=== PATIENT | male | born 1950 | race Caucasian/White ===

== ENCOUNTER 2023-11-07 06:04 | Emergency (ER) | payer OTHER, SELFPAY ==
[2023-11-07] VITALS (7 sets, daily range): BP systolic 129–184; BP diastolic 56–102; BMI 31.0
--- NOTE | 2023-11-07 06:32 | EDRN ---
0400. Pt is on a blood thinner and he can not get it tostop. Pt feels blood going down his throat.
--- NOTE | 2023-11-07 07:10 | ED.GENMED ---
History of Present Illness
General
Chief Complaint: Nose Bleed
Source: patient and spouse
Exam Limitations: none
Time Seen by Provider: 11/07/23 06:52
Nursing documentation reviewed up to this point in time: agreed with
History of Present Illness
History of Present Illness:
73 yo male presents to the emergency department due to a nose bleed that started at 4 am. He takes xarelto for atrial fibrillation. It is bleeding from the left nostril.
Past History
Past History
ED Past Medical History: Arrthythmia (atrial fibrillation)
ED Past Surgical History: Orthopedic (back surgery) and Other (hernia repair)
Social History
Tobacco: Non-smoker
Alcohol: None
Drug: None
Phy Exam
Physical Exam
Physical Exam:
No acute distress, blood draining from left nare, possible source and anterior, but not seen
Course
Orders/Labs/Results
Orders:
Orders
11/07/23 08:55
Acetaminophen [Tylenol] 650 mg PO NOW STA
Amoxicillin [Amoxil] 500 mg PO STAT STA
11/07/23 08:57
Acetaminophen [Tylenol] 650 mg .ROUTE .STK-MED ONE
11/07/23 08:59
Amoxicillin [Amoxil] 500 mg PO STAT STA
Vital Signs
Initial and Last Documented VS:
Initial Vital Signs
Temp Pulse Resp BP Pulse Ox
98 F 70 24 184/102 98
11/07/23 06:07 11/07/23 06:07 11/07/23 06:07 11/07/23 06:07 11/07/23 06:07
Last Documented Vital Signs
Temp Pulse Resp BP Pulse Ox
98 F 66 17 159/79 97
11/07/23 06:07 11/07/23 09:49 11/07/23 09:49 11/07/23 09:49 11/07/23 08:47
Procedures
Nosebleed
Drug treatment: Lidocaine and Epinephrine
Treatment: Silver nitrate cautery and Posterior balloon
Post treatment bleeding: none- good control
MDM/Problems Addressed
Differential Diagnosis Includes:
Posterior epistaxis versus anterior
MDM/Problems Addressed:
Epistaxis is a 73-year-old male on Xarelto, bleeding controlled with posterior packing. Seen by Dr. Velasquez, ENT. Examined patient but bleeding was controlled. He will follow-up with patient in office.
Chronic conditions affecting care: Arrhythmia
Acute Exacerbation and/or Progression of Chronic Illness: Arrhythmia
*Pulse Oximetry
Patient hypoxic: no
*Ward Service Supervisor Interpretation
Rate: normal
Interpretation: normal
Heart Rate: 66
Rhythm: sinus
*Critical Care Note
Total Time (30-74mins, 75-104mins- exclusive of procedures): Not Applicable
Patient Management
Discussion with other providers: Cylinder Inspector And Tester (ENT, Dr. Velasquez)
Escalation/DeEscalation of care consider admission/obs:
Admit not indicated
ED Attending Note
-
Portions of this chart may have been created with voice recognition software.� Occasional wrong word or��sound alike� substitutions may have occurred due to the inherent limitations of voice recognition software.
Discharge Plan
Departure
Patient Disposition: Home (Routine Discharge)
Date of Disposition: 11/07/23
Time of Disposition: 09:48
Patient with high blood pressure during this ER visit?: Yes
Condition: Good
Discharge Problem:
Acute posterior epistaxis
Instructions: Nosebleeds (DC), BLOOD PRESSURE
Prescriptions:
New
amoxicillin 500 mg capsule
500 mg PO BID Qty: 10 0RF
No Action
metoprolol succinate 100 mg Tablet Extended Release 24 Hr
100 mg PO DAILY
lisinopril 10 mg Tablet
10 mg PO DAILY
aspirin 81 mg Tablet
81 mg PO DAILY
digoxin 125 mcg (0.125 mg) Tablet
125 mcg PO DAILY
doxycycline hyclate 20 mg Tablet
20 mg PO DAILY
Xarelto 20 mg Tablet
20 mg PO HS
Referrals:
Samina Lopez MD [Family Provider] -
Juvenal Velasquez MD [Active] - Call in 1-3 days for appt
Interventions
Interventions:
*Risk Screen - Suicide Last Done: 11/07/23 06:07
*General Assessment Last Done: 11/07/23 06:25
*Neglect/Abuse Screening Last Done: 11/07/23 06:07
ED- Fall Risk Assessment Last Done: 11/07/23 06:25
*ED COVID-19 Vaccine History Last Done: 11/07/23 06:25
*Nursing Disposition Last Done: 11/07/23 10:00
ED-EENT Assessment Last Done: 11/07/23 07:14
Discharge Date and Time
Discharge Date/Time: 11/07/23 10:10
Print Language: KYRGYZ
--- NOTE | 2023-11-07 08:18 | CON.MD ---
Consultation - Medical
-
Epistaxis
73 yo c HTN, afib on Xarelto, ASA presents c L sided epistaxis this AM
Presently c 7.[address], 6 cc of air inflated
No active bleeding presently
Small piece of old clot in oropharyx
Pt feels clammy, just had a vasovagal event, starting to feel better
VSS
A/P Epistaxis
Presently controlled c present pack
Prophylactic antibiotics - amoxicillin
Leave pack in place 3 days, can be removed in office if discharged
could add more air if rebleeds, often use at least 10 cc air
[2023-11-07] MEDS: TYLENOL 650 MG PO (09:00)
[2023-11-07] MEDS: AMOXIL 500 MG PO (09:05)
== END 2023-11-07 10:10 | disposition home or self-care (01) ==
LOC: EMR 06:04
PROVIDERS: EMERGENCY PHYSICIAN Emergency Medicine; FAMILY PHYSICIAN Family Medicine; OTHER PHYSICIAN Otolaryngology
DX: R04.0 Epistaxis (principal); R51.9 Headache, unspecified; I48.91 Unspecified atrial fibrillation; I10 Essential (primary) hypertension; Z79.01 Long term (current) use of anticoagulants
CPT/HCPCS: 99283; 30901